=== PATIENT | female | born 1940 | race Caucasian/White ===

== ENCOUNTER 2021-03-20 12:02 | Outpatient (CLI) | payer MEDICARE, OTHER | END 2021-03-20 12:03 | disposition home or self-care (01) | LOC: CSHMAMMO 12:02 | PROVIDERS: ATTEND Family Medicine | DX: Z12.31 Encounter for screening mammogram for malignant neoplasm of breast (principal) | CPT/HCPCS: 77063; 77067 ==

== ENCOUNTER 2022-02-19 10:02 | Outpatient (CLI) | payer MEDICARE, OTHER | END 2022-02-19 10:03 | disposition home or self-care (01) | LOC: CSHMAMMO 10:02 | PROVIDERS: ATTEND Family Medicine | DX: M85.89 Other specified disorders of bone density and structure, multiple sites (principal) | CPT/HCPCS: 77080 ==

== ENCOUNTER 2022-10-31 14:23 | Outpatient (CLI) | payer MEDICARE, OTHER | END 2022-10-31 14:24 | disposition home or self-care (01) | LOC: CSHMAMMO 14:23 | PROVIDERS: ATTEND Family Medicine | DX: Z12.31 Encounter for screening mammogram for malignant neoplasm of breast (principal) | CPT/HCPCS: 77063; 77067 ==

== ENCOUNTER 2024-03-04 11:05 | Outpatient (CLI) | payer MEDICARE, OTHER | END 2024-03-04 11:06 | disposition home or self-care (01) | LOC: CSHMAMMO 11:05 | PROVIDERS: ATTEND Family Medicine | DX: Z78.0 Asymptomatic menopausal state (principal); M85.89 Other specified disorders of bone density and structure, multiple sites | CPT/HCPCS: 77080 ==